=== PATIENT | male | born 1955 | race Caucasian/White ===

== ENCOUNTER 2019-12-04 01:52 | Inpatient (IN) | payer MEDICAID ==
[2019-12-04] VITALS (9 sets, daily range): BP systolic 107–154; BP diastolic 56–99
[~2019-12-04] VITALS: Ht 172.7 cm; Wt 81.6 kg
[2019-12-04] MEDS ORDERED: DILTIAZEM HCL 60MG TABLET PO ONE (02:00)
[2019-12-04] MEDS ORDERED: DILTIAZEM HCL 5MG/ML 5ML VIAL IV ONE (02:00)
[2019-12-04 03:27] LABS: BASOPHILS % 1.3 % (0.0-2.0); EOSINOPHILS % 4.4 % (0.0-5.0); HEMOGLOBIN. 14.9 g/dL (14.0-18.0); LYMPHOCYTES % 29.9 % (20.0-50.0); MEAN CORPUSCULAR HEMOGLOBIN 31.7 pg (28.0-32.0); MEAN CORPUSCULAR VOLUME 95.7 fL (80.0-94.0); MEAN PLATELET VOLUME 10.2 fl (7.4-10.4); MONOCYTES % 7.9 % (2.0-8.0); NEUTROPHILS % 56.5 % (40.0-76.0); PLATELET 297 x1000/uL (130-400); RED CELL DISTRIBUTION WIDTH 15.7 % (11.6-14.6)
[2019-12-04 03:35] LABS: CHLORIDE 111 mEq/L (98-107)
[2019-12-04 03:42] LABS: INR 1.1; PARTIAL THROMBOPLASTIN TIME 25.7 sec (23.4-31.0); PROTHROMBIN TIME 11.2 sec (9.6-11.0)
[2019-12-04] MEDS ORDERED: FUROSEMIDE 40MG/4ML VIAL IVP ONE (04:15)
[2019-12-04 04:19] LABS: *AMPHETAMINES SCREEN URINE NEGATIVE (NEGATIVE); CANNABINOID URINE SCREEN NEGATIVE (NEGATIVE); PHENCYCLIDINE URINE SCREEN NEGATIVE (NEGATIVE)
[2019-12-04 04:20] LABS: *BARBITURATES SCREEN URINE NEGATIVE (NEGATIVE); *BENZODIAZEPINES SCREEN URINE NEGATIVE (NEGATIVE); *COCAINE SCREEN URINE NEGATIVE (NEGATIVE); METHADONE URINE SCREEN NEGATIVE (NEGATIVE); OPIATES URINE SCREEN NEGATIVE (NEGATIVE)
[2019-12-04] MEDS ORDERED: ACETAMINOPHEN 325MG TABLET PO PRN (10:15)
[2019-12-04] MEDS ORDERED: ONDANSETRON HCL 4MG/2ML INJ IV PRN (10:15)
[2019-12-04] MEDS ORDERED: IPRATROPIUM BROMIDE (0.02%) 0.5MG/2.5ML NEB HHN PRN (10:15)
[2019-12-04] MEDS ORDERED: DILTIAZEM HCL 5MG/ML 5ML VIAL IV NR (11:15)
[2019-12-04] MEDS: FUROSEMIDE 40MG/4ML VIAL IVP SCH ×2 (11:15→17:29)
[2019-12-04] MEDS: ENOXAPARIN 80MG/0.8ML SYR SUBCUT SCH ×2 (11:16→20:59)
[2019-12-04] MEDS ORDERED: INFLUENZA VIRUS VACCINE(AFLURIA) 0.5ML SYR IM ONE (12:00)
[2019-12-04] MEDS ORDERED: PNEUMOCOCCAL 23-VAL P-SAC VAC 0.5 ML IM ONE (12:00)
[2019-12-04] MEDS ORDERED: BUDESONIDE 0.5MG/2ML NEB HHN SCH (12:15)
[2019-12-04] MEDS: DILTIAZEM HCL 60MG TABLET PO SCH ×2 (13:18→20:57)
[2019-12-04] MEDS ORDERED: DILTIAZEM HCL 125 MG in DEXT 5% WATER 100 ML IV ONE (19:30)
[2019-12-05] VITALS (16 sets, daily range): BP systolic 91–146; BP diastolic 42–82
[2019-12-05] MEDS: DILTIAZEM HCL 60MG TABLET PO SCH ×4 (05:25→18:31)
[2019-12-05 06:47] LABS: BASOPHILS % 2.9 % (0.0-2.0); EOSINOPHILS % 4.1 % (0.0-5.0); HEMATOCRIT. 44.9 % (42.0-52.0); LYMPHOCYTES % 28.1 % (20.0-50.0); MEAN CORPUSCULAR HEMOGLOBIN 31.7 pg (28.0-32.0); MEAN CORPUSCULAR VOLUME 95.1 fL (80.0-94.0); MEAN PLATELET VOLUME 10.3 fl (7.4-10.4); MONOCYTES % 8.7 % (2.0-8.0); NEUTROPHILS % 56.2 % (40.0-76.0); PLATELET 279 x1000/uL (130-400); RED BLOOD CELL COUNT 4.73 mill/uL (4.7-6.1); RED CELL DISTRIBUTION WIDTH 16.1 % (11.6-14.6)
[2019-12-05 07:36] LABS: CHLORIDE 105 mEq/L (98-107)
[2019-12-05] MEDS: FUROSEMIDE 40MG/4ML VIAL IVP SCH ×2 (09:07→17:27)
[2019-12-05] MEDS: ENOXAPARIN 80MG/0.8ML SYR SUBCUT SCH ×2 (09:09→20:54)
[2019-12-05] MEDS: LOSARTAN POTASSIUM 25 MG TABLET PO SCH (16:00)
[2019-12-05] MEDS: CARVEDILOL 12.5MG TABLET PO SCH (20:54)
[2019-12-06] VITALS (14 sets, daily range): BP systolic 86–117; BP diastolic 41–76
[2019-12-06] MEDS: DILTIAZEM HCL 60MG TABLET PO SCH (00:46)
[2019-12-06] MEDS ORDERED: SODIUM CHLORIDE 0.9% 500 ML IV ONE (05:30)
[2019-12-06] MEDS: DILTIAZEM HCL 30MG TABLET PO SCH ×3 (06:00→17:44)
[2019-12-06 06:29] LABS: BASOPHILS % 1.2 % (0.0-2.0); EOSINOPHILS % 4.3 % (0.0-5.0); HEMATOCRIT. 45.1 % (42.0-52.0); LYMPHOCYTES % 21.9 % (20.0-50.0); MEAN CORPUSCULAR HEMOGLOBIN 31.5 pg (28.0-32.0); MEAN CORPUSCULAR VOLUME 94.6 fL (80.0-94.0); MEAN PLATELET VOLUME 10.6 fl (7.4-10.4); MONOCYTES % 6.8 % (2.0-8.0); NEUTROPHILS % 65.8 % (40.0-76.0); PLATELET 283 x1000/uL (130-400); RED BLOOD CELL COUNT 4.76 mill/uL (4.7-6.1); RED CELL DISTRIBUTION WIDTH 15.6 % (11.6-14.6)
[2019-12-06] MEDS: FUROSEMIDE 40MG/4ML VIAL IVP SCH (07:01)
[2019-12-06] MEDS: LOSARTAN POTASSIUM 25 MG TABLET PO SCH (08:34)
[2019-12-06] MEDS: CARVEDILOL 12.5MG TABLET PO SCH ×2 (08:35→21:16)
[2019-12-06] MEDS: ENOXAPARIN 80MG/0.8ML SYR SUBCUT SCH ×2 (08:52→21:18)
[2019-12-06] MEDS ORDERED: LOSARTAN POTASSIUM 25 MG TABLET PO SCH (09:00)
[2019-12-06] MEDS ORDERED: REGADENOSON 0.4 MG/5 ML IV NR (14:15)
[2019-12-06] MEDS: FUROSEMIDE 40MG TABLET PO SCH (15:19)
[2019-12-06] MEDS: SPIRONOLACTONE 25MG TABLET PO SCH (15:20)
[2019-12-06] MEDS ORDERED: DIGOXIN 250MCG TABLET PO SCH (18:00)
[2019-12-07] VITALS (7 sets, daily range): BP systolic 102–130; BP diastolic 65–100
[2019-12-07] MEDS: DILTIAZEM HCL 30MG TABLET PO SCH ×3 (00:40→12:02)
[2019-12-07 07:57] LABS: BASOPHILS % 1.1 % (0.0-2.0); EOSINOPHILS % 5.3 % (0.0-5.0); HEMOGLOBIN. 15.1 g/dL (14.0-18.0); LYMPHOCYTES % 26.9 % (20.0-50.0); MEAN CORPUSCULAR HEMOGLOBIN 31.7 pg (28.0-32.0); MEAN CORPUSCULAR VOLUME 94.3 fL (80.0-94.0); MEAN PLATELET VOLUME 10.7 fl (7.4-10.4); NEUTROPHILS % 57.7 % (40.0-76.0); PLATELET 257 x1000/uL (130-400); RED BLOOD CELL COUNT 4.77 mill/uL (4.7-6.1); RED CELL DISTRIBUTION WIDTH 15.2 % (11.6-14.6)
[2019-12-07 08:27] LABS: CHLORIDE 107 mEq/L (98-107)
[2019-12-07] MEDS ORDERED: REGADENOSON 0.4 MG/5 ML IV ONE (09:06)
[2019-12-07] MEDS: CARVEDILOL 12.5MG TABLET PO SCH (09:56)
[2019-12-07] MEDS: SPIRONOLACTONE 25MG TABLET PO SCH (09:56)
[2019-12-07] MEDS: ENOXAPARIN 80MG/0.8ML SYR SUBCUT SCH (09:56)
[2019-12-07] MEDS: FUROSEMIDE 40MG TABLET PO SCH (09:56)
[2019-12-07] MEDS: LOSARTAN POTASSIUM 25 MG TABLET PO SCH (09:56)
== END 2019-12-07 13:00 | disposition home or self-care (01) | DRG 201 ==
LOC: ER 02:33 → 3WST 03:01 → EDBEDREQSVC 04:13 → EDBEDREQ 04:13 → EDBEDREQTM 04:13 → ENRESERV 07:35
PROVIDERS: ADMIT Internal Medicine; ATTEND Internal Medicine
DX: I48.91 Unspecified atrial fibrillation (principal); I50.21 Acute systolic (congestive) heart failure; E87.8 Other disorders of electrolyte and fluid balance, not elsewhere classified; I42.9 Cardiomyopathy, unspecified; E44.1 Mild protein-calorie malnutrition; I11.0 Hypertensive heart disease with heart failure; F17.210 Nicotine dependence, cigarettes, uncomplicated; E78.00 Pure hypercholesterolemia, unspecified
CPT/HCPCS: 36415; 71045; 78452; 80048; 80053; 80061; 80305; 83880; 84443; 84484; 85025; 90686; 90732; 93005; 93017; 93306; 96374; 99291; A9500; J1650; J1940; J2405; J2785; J3490; J7040; J7060